=== PATIENT | male | born 1985 | race Caucasian/White ===

== ENCOUNTER 2016-12-05 15:47 | Outpatient (CLI) | payer BC | END 2016-12-05 15:48 | disposition short-term general hospital (02) | LOC: EMS 15:47 | PROVIDERS: ATTEND Surgery | DX: R06.02 Shortness of breath (principal) | CPT/HCPCS: A0425; A0427 ==

== ENCOUNTER 2020-04-29 14:18 | Outpatient (CLI) | payer BC, OTHER ==
[2020-04-29 15:05] VITALS: BP 122/92
--- NOTE | 2020-04-29 15:05 | SLEEP CARE CONSULTATION ---
Information from patient questionnaire entered by Poly Pearl. I have reviewed and concur with the information entered by Poly Pearl. This document represents the service I personally performed and the decisions made by me, Jaycee Santos ARNP. History of Present Illness Service Date and Time: 04/29/2020 1418 Reason for Visit: New patient, -[facility] Chief Complaint: reports: Unrefreshed sleep, Snoring, Excessive daytime sleepiness, Observed pauses in breathing, Fatigue, Frequent awakenings at night Date of Onset: Several years Usual bedtime: 2330 Time it takes to fall asleep: 20 sec Snores at night: Yes (LOUDLY) Observed to quit breathing while asleep: Yes Number of times waking at night: 1 or 2 Reasons for waking at night: reports: Choking, Snoring, Gasping for air, Bathroom Toss, Turn, or Twitch while sleeping: No Recalls having dreams: No (Seldom) Usually gets out of bed at: 0545 to alarm, out of bed about [id number] Feels refreshed in the morning: No Morning headache: Yes (once in a while, not often) Sleepy or fatigued during the day: Yes Ever fallen asleep while driving: No Takes day naps: No Dreams during day naps: No Prior sleep studies: Yes Year and Where: 2014 [facility] Additional HPI information: I had the pleasure of seeing DAILY LILLY today regarding the possibility of him having a sleep disorder. His current complaints are snoring, observed pauses in breathing, unrefreshed sleep and excessive daytime sleepiness. He had a sleep study 5 years ago. He has gained over 45 pounds over the last 3 years. He has a more sedentary job and lost grandparents. He snores really loud. He has stopped breathing. He cannot sleep on back because his tongue falls back and blocks airway. Both his parents have sleep apnea and use CPAP machines. 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 Patient is Single and lives in [place]. Have you smoked in the past 12 months: No Alcohol use: Yes Alcohol amount and frequency: 1 every other month? Seldom Caffeine use: Yes Caffeine amount and frequency: 2 cups/day Family History Family history of sleep disordered breathing: Yes (Mother + Father) Family Hx Sleep Apnea: Mother: Sleep apnea - Treated, Father: Sleep apnea - Treated Allergies and Home Medications Drug allergies reviewed: Yes (Sulfa, penicillin, Septra, DPT) Home medication list reviewed: Yes (Felodipine 5 mg, HCTZ) Review of Systems Weight gain over past 5 years: 45 Weight loss over past 5 years: 23 Cardiovascular: reports: high blood pressure Respiratory: reports: shortness of breath, wheeze Neurological: reports: head trauma (knocked out 2 years ago). denies: headaches Psychiatric: denies: anxiety, depression, mood disorder Ear/Nose/Throat: reports: nasal congestion, wisdom teeth removed. denies: injury to nose, tonsillectomy Endocrine: denies: thyroid disease Immunologic: reports: sneezing (runny nose), itching. denies: allergies to food or environment Physical Exam Blood Pressure: 122/92 Cuff size: long Heart Rate: 79 O2 Saturation: 96 Height: 5 ft 7.5 in Weight: 244 lb Body Mass Index: 37.6 BMI Classification: Obese Neck circumference: 17.25 (inches) Nostrils: patent to airflow Mouth and throat: narrow oropharynx Uvula visualization: 50% Mallampati Class II Tongue: normal in size Tonsils: 2+ Chin and jaw: normal size and position Neck: normal w/o lymphadenopathy or thyromegaly Heart: regular rate and rhythm Lungs: clear bilaterally Impression and Plan 1. Suspected Obstructive Sleep Apnea-Hypopnea Syndrome, as suggested by a history of loud and irregular snoring, observed cessation of breath while asleep, gasping or choking in sleep, frequent awakening during the night, unrefreshed sleep, cognitive impairment, and excessive daytime sleepiness. Narrow oropharynx and obesity are common predisposing factors for obstructive sleep apnea-hypopnea syndrome. I recommend proceeding to polysomnography to confirm the diagnosis and to assess severity. If the patient has significant sleep disordered breathing, a manual CPAP titration study will also be performed to find the optimal treatment pressure. I informed the patient of what the sleep studies involve and after some discussion, obtained agreement to proceed. The pathophysiology of obstructive sleep apnea-hypopnea syndrome was discussed with the patient and health risks of cardiovascular and cerebrovascular disease if not treated. [facility] brochure for obstructive sleep apnea-hypopnea syndrome given and reviewed. Risks of drowsy driving discussed in detail and patient advised to avoid long distance driving and to hook puller at the first sign of drowsiness. Patient agreed to plan. * Schedule polysomnography +- manual CPAP titration study and return in 1-2 weeks after the study to discuss result and initiate therapy. * Avoid long distance driving or driving when feeling sleepy. * Avoid alcohol, sedative and muscle relaxant around bedtime. * Attempt to lose weight. * Review instructions provided by trained office staff on how to prepare for the sleep study. * Return for follow-up after sleep study completed. Counseling Topics: Weight loss health impact Visit Type: In Office Time Spent with Patient (minutes): 30 Provider Statement: I spent 100% of the Face to Face Visit with the patient with greater than 50% spent counseling the patient and coordination of care.
== END 2020-04-29 14:19 | disposition home or self-care (01) ==
LOC: SC 14:18
PROVIDERS: ATTEND Nurse Practitioner Family
DX: G47.10 Hypersomnia, unspecified (principal); R41.89 Other symptoms and signs involving cognitive functions and awareness; G47.8 Other sleep disorders; R06.81 Apnea, not elsewhere classified; R06.83 Snoring; E66.9 Obesity, unspecified; Z68.37 Body mass index [BMI] 37.0-37.9, adult
CPT/HCPCS: 99203; 99212

== ENCOUNTER 2020-05-17 14:17 | Outpatient (CLI) | payer OTHER | END 2020-05-17 14:18 | disposition home or self-care (01) | LOC: SC 14:17 | PROVIDERS: ATTEND Nurse Practitioner Family | DX: G47.33 Obstructive sleep apnea (adult) (pediatric) (principal); R09.02 Hypoxemia | CPT/HCPCS: 95806 ==

== ENCOUNTER 2020-06-17 14:10 | Outpatient (CLI) | payer OTHER ==
--- NOTE | 2020-06-17 14:37 | SLEEP CARE CONSULTATION ---
Information from patient questionnaire entered by Poly Pearl. I have reviewed and concur with the information entered by Poly Pearl. This document represents the service I personally performed and the decisions made by me, Jaycee Santos ARNP. History of Present Illness Service Date and Time: 06/17/2020 1410 Initial [place] Sleepiness Scale score: 7 (in 2020 (3 in 2015) Current [place] Sleepiness Scale score: 5 Additional HPI information: DAILY LILLY returns for follow up and results of the recently performed home sleep study. He was found to have moderate obstructive sleep apnea with an carmen oxygen saturation of 78%. I explained the pathophysiology behind obstructive sleep apnea. We then spent quite a bit of time discussing different treatment options. For mild obstructive sleep apnea, surgery and oral appliance are alternatives to nasal CPAP therapy but in moderate or severe cases, nasal CPAP is the most effective and reliable treatment. Because apnea is primarily in supine position, then positional management therapy could be effective. Methods discussed such as positioning with pillows, using a T-shirt with tennis balls in the back, and shown commercial products that have a pillow format on back to prevent supine sleep. I reviewed the impact of weight changes on sleep apnea and strongly recommended losing weight. After some discussion, the patient opted to go with the nasal CPAP therapy. Nasal a utoCPAP set at 4-15 cmH20 will be ordered with rationale explained. A manual titration study will be ordered if unable to find optimal pressure with office adjustments. I explained how CPAP machine works with sample devices Respironics Dreamstation and ResMed [id number] and what to expect when using the machine. Using CPAP every night in order to get used to it was emphasized. Patient advised to put CPAP mask on before getting into bed so as not to fall asleep without CPAP. To assist acclimation to CPAP use, it could also be used for a short time during day while reading or watching TV. The patient was instructed to call the CPAP supplier to discuss any mechanical problem that may occur. If the mask given is uncomfortable or is difficult to keep on through the night even with adjustment, contact the CPAP supplier as many will replace with another mask style if notified before 30 days. If snoring or perceives is not getting enough air or too much air from the machine, notify this office. [facility] patient education PAP tips reviewed and given to patient. Patient counseled not drink alcohol less than 4 hours before bedtime as it can increase snoring and apnea. Patient was cautioned about risks of drowsy driving until sleepiness symptoms resolve. Sleep Study - Results Type of Sleep Study: Home sleep study Prior sleep studies: Yes Year and Where: 2014 [facility] Polysomnography/Home Sleep Study results: Physician Impression: The quality of the study is fair due to partial loss of pulse oximetry signal.. The length of the study is adequate (> 240 minutes). Please also see the tabulated and graphic data. 1. Obstructive Sleep Apnea-Hypopnea (ICD-10 G47.33), moderate, with an AHI of 23.5/hr and carmen SaO2 of 73%. During the study, the patient had 133 apneas (133 obstructive, 0 central, 0 mixed) and 37 hypopneas. The longest episode lasted 73.5 seconds. The respiratory events occurred more frequently during supine sleep (supine AHI was 32.0 and non-supine, 12.02). 2. Hypoxemia (ICD-10 R09.02), moderate, with the lowest oxygen saturation of 73 % and 31.0 minutes with SaO2 under 90%. Baseline oxygen saturation was normal (Average oxygen saturation was 93%). 3. Tachycardia, with maximum recorded heart rate of 224 beats per minute. This appears to be an artifact. Allergies and Home Medications Home medication list reviewed: Yes (no new meds) Review of Systems Review of systems same as previous: Yes (no changes) Physical Exam Heart Rate: 79 O2 Saturation: 98 Height: 5 ft 7.5 in Weight: 242 lb Body Mass Index: 37.3 BMI Classification: Obese Impression and Plan 1. Obstructive Sleep Apnea-Hypopnea Syndrome, moderate, with lowest oxygen saturation of 78%. Obviously this is the cause of the patients symptoms of unrefreshed sleep, and excessive daytime sleepiness. Positive pressure therapy could benefit hypertension and attention deficit. As mentioned above, the patient will be started on nasal autoCPAP therapy with pressure set at 4-15 cmH2 O. Compliance guidelines also reviewed. A copy of compliance guidelines will be given for reference at check out. Because the apnea is more severe supine, I instructed to avoid sleeping supine using pillow positioning until able to start CPAP use. 2. Hypoxemia, moderate, with the lowest oxygen saturation of 73 % and 31.0 minutes with SaO2 under 90%. His baseline oxygen saturation was normal with an average oxygen saturation of 93%. * Nasal auto CPAP therapy, pressure at 4-15 cm H2O. * Attempt to lose weight. * Avoid alcohol consumption near bedtime. * Avoid supine sleep until using CPAP. * The patient is again cautioned about driving until sleepiness completely resolves. * Return one month after CPAP obtained. I will assess response to therapy and compliance at that time. Counseling Topics: Weight loss health impact Visit Type: In Office Time Spent with Patient (minutes): 20 Provider Statement: I spent 100% of the Face to Face Visit with the patient with greater than 50% spent counseling the patient and coordination of care.
== END 2020-06-17 14:11 | disposition home or self-care (01) ==
LOC: SC 14:10
PROVIDERS: ATTEND Nurse Practitioner Family
DX: G47.33 Obstructive sleep apnea (adult) (pediatric) (principal); R09.02 Hypoxemia; E66.9 Obesity, unspecified; Z68.37 Body mass index [BMI] 37.0-37.9, adult
CPT/HCPCS: 99212; 99213

== ENCOUNTER 2021-02-28 08:00 | Outpatient (CLI) | payer OTHER | END 2021-02-28 23:59 | LOC: LAB 08:00 | PROVIDERS: ATTEND Family Medicine | DX: U07.1 COVID-19 (principal) ==

== ENCOUNTER 2021-12-09 11:43 | Outpatient (CLI) | payer BC | END 2021-12-09 11:44 | disposition short-term general hospital (02) | LOC: EMS 11:43 | DX: R07.89 Other chest pain (principal); R06.02 Shortness of breath; R11.0 Nausea | CPT/HCPCS: A0425; A0427 ==

== ENCOUNTER 2021-12-18 11:05 | Outpatient (CLI) | payer BC ==
[2021-12-18 13:01] LABS: ALBUMIN 4.4 g/dL (3.2-5.5); ALBUMIN/GLOBULIN RATIO 1.4 (1.0-2.2); BILIRUBIN,TOTAL 0.7 mg/dL (0.2-1.0); CALCIUM 9.8 mg/dL (8.5-10.3); CREATININE 1.1 mg/dL (0.6-1.2); POTASSIUM 4.6 mmol/L (3.5-5.0); TOTAL PROTEIN 7.6 g/dL (6.7-8.2)
== END 2021-12-18 11:06 | disposition home or self-care (01) ==
LOC: LAB.N 11:05
PROVIDERS: ATTEND Physician Assistant
DX: R74.8 Abnormal levels of other serum enzymes (principal)
CPT/HCPCS: 36415; 80053

== ENCOUNTER 2021-12-20 09:47 | Outpatient (CLI) | payer BC ==
[2021-12-20 10:26] VITALS: BP 106/62
--- NOTE | 2021-12-20 10:26 | SLEEP CARE CONSULTATION ---
Information from patient questionnaire entered by Merna Jeffrey. I have reviewed and concur with the information entered by Merna Jeffrey. This document represents the service I personally performed and the decisions made by me, Jaycee Santos ARNP. History of Present Illness Service Date and Time: 12/20/2021 0947 Previous diagnosis: Moderate, Obstructive Sleep Apnea-Hypopnea Syndrome AHI: 23.5 (in 2020) Reason for follow up: annual (last seen 06/17/2020) Equipment type: CPAP Prior sleep studies: Yes Year and Where: 2014 [facility] Type of Sleep Study: Home sleep study HPI additional information: DAILY LILLY was diagnosed to have moderate, AHI 23.5, obstructive sleep apnea- hypopnea syndrome and returned today for CPAP therapy annual. Patient has not been back for follow up and states that the DME ([employer]) asked for his machine back due to non-compliance with using it. He just had a STEMI on December 09 and was told he needed to get back on his CPAP machine. Sleep Study - Results Type of Sleep Study: Home sleep study Prior sleep studies: Yes Year and Where: 2014 [facility] CPAP Compliance Data Compliance data discussion: Patient had a ResMed machine that was returned in August 2021. Subjective Initial [place] Sleepiness Scale score: 7 (in 2020 (3 in 2014) Current [place] Sleepiness Scale score: 9 (12/20/2021) Allergies and Home Medications Drug allergies reviewed: Yes (penicillin, sulfa, TDAP vaccine, codeine) Home medication list reviewed: Yes Allergy and home medication list: New Medications: Aspirin Carvedilol Losartan Nitroglycerin Prasugrel Rosuvastatin Spironolactone Review of Systems Review of systems same as previous: No (STEMI on Dec 09, 2021, stent installed in LED) Physical Exam Vital signs obtained and entered by: MERNA Klein MA Blood Pressure: 106/62 (left arm) Cuff size: regular Heart Rate: 65 O2 Saturation: 98 Height: 5 ft 7.5 in Weight: 252 lb 6.4 oz Body Mass Index: 38.9 BMI Classification: Obese Impression and Plan 1. Obstructive Sleep Apnea-Hypopnea Syndrome, moderate. Patient has not been been very compliant with his CPAP and his DME company have him return it in August. Patient recently had a STEMI with stents placed in December 2021.We will have to requalify him for CPAP treatment to get him reinstated on his sleep apnea therapy. I will order a sleep study and he will follow-up after it is completed. I also reviewed the benefit of consistent device use of CPAP for hypertension and attention deficit. 2. Obesity, unspecified. Currently patients BMI is 38.9. Obesity increases the risk of apnea, CPAP pressure requirements and overall health risks especially cardiovascular and diabetes. Thus patient is advised to lose weight. * Schedule polysomnography * Avoid long distance driving or driving when feeling sleepy. * Avoid alcohol, sedative and muscle relaxant around bedtime. * Attempt to lose weight. * Review instructions provided by trained office staff on how to prepare for the sleep study. * Return for follow-up after sleep study completed. Counseling Topics: Weight loss health impact Visit Type: In Office Time Spent with Patient (minutes): 22 Provider Statement: I spent 100% of the Face to Face Visit with the patient with greater than 50% spent counseling the patient and coordination of care.
== END 2021-12-20 09:48 | disposition home or self-care (01) ==
LOC: SC 09:47
PROVIDERS: ATTEND Nurse Practitioner Family
DX: G47.33 Obstructive sleep apnea (adult) (pediatric) (principal); E66.9 Obesity, unspecified; Z68.38 Body mass index [BMI] 38.0-38.9, adult
CPT/HCPCS: 99212; 99213

== ENCOUNTER 2022-01-09 15:39 | Outpatient (CLI) | payer BC | END 2022-01-09 15:40 | disposition home or self-care (01) | LOC: SC 15:39 | PROVIDERS: ATTEND Nurse Practitioner Family | DX: G47.33 Obstructive sleep apnea (adult) (pediatric) (principal); R09.02 Hypoxemia | CPT/HCPCS: 95806 ==

== ENCOUNTER 2022-01-17 15:50 | Outpatient (CLI) | payer BC ==
--- NOTE | 2022-01-17 16:38 | SLEEP CARE CONSULTATION ---
Information from patient questionnaire entered by Merna Jeffrey. I have reviewed and concur with the information entered by Merna Jeffrey. This document represents the service I personally performed and the decisions made by , Jaycee Santos ARNP. History of Present Illness Service Date and Time: 01/17/2022 1550 Initial [place] Sleepiness Scale score: 7 (in 2020 (3 in 2015) Current [place] Sleepiness Scale score: 4 (01/17/2022) Additional HPI information: DAILY LILLY returns for follow up and results of the recently performed home sleep study. I explained the pathophysiology behind obstructive sleep apnea. We then spent quite a bit of time discussing different treatment options. For mild obstructive sleep apnea, surgery and oral appliance are alternatives to nasal CPAP therapy but in moderate or severe cases, nasal CPAP is the most effective and reliable treatment. Because apnea is primarily in supine position, then positional management therapy could be effective. Methods discussed such as positioning with pillows to prevent supine sleep. I reviewed the impact of weight changes on sleep apnea and strongly recommended losing weight. After some discussion, the patient opted to go with the nasal CPAP therapy. Nasal autoCPAP set at 4-15 cmH20 will be ordered with rationale explained. A manual titration study will be ordered if unable to find optimal pressure with office adjustments. I explained how CPAP machine works and what to expect when using the machine. Using CPAP every night in order to get used to it was emphasized. Patient advised to put CPAP mask on before getting into bed so as not to fall asleep without CPAP. To assist acclimation to CPAP use, it could also be used for a short time during day while reading or watching TV. The patient was instructed to call the CPAP supplier to discuss any mechanical problem that may occur. If the mask given is uncomfortable or is difficult to keep on through the night even with adjustment, contact the CPAP supplier as many will replace with anoth er mask style if notified before 30 days. If snoring or perceives is not getting enough air or too much air from the machine, notify this office. Patient counseled not drink alcohol less than 4 hours before bedtime as it can increase snoring and apnea. Patient was cautioned about risks of drowsy driving until sleepiness symptoms resolve. Patient denies drowsy driving. Sleep Study - Results Type of Sleep Study: Home sleep study (COMPLETED 01/09/2022) Prior sleep studies: Yes Year and Where: 2014 [facility] Polysomnography/Home Sleep Study results: Physician Impression: The quality of the study is good. The length of the study is not optimal (< 240 minutes). Please also see the tabulated and graphic data. 1. Obstructive Sleep Apnea-Hypopnea (ICD-10 G47.33), moderate, with an AHI of 16.1/hr and carmen SaO2 of 84%. During the study, the patient had 23 apneas (23 obstructive, 0 central, 0 mixed) and 31 hypopneas. The longest episode lasted 111.5 seconds. The respiratory events o ccurred more frequently during supine sleep (supine AHI was 46.2 and non-supine, 10.02). 2. Hypoxemia (ICD-10 R09.02), mild, with the lowest oxygen saturation of 84 % and 37.8 minutes with SaO2 under 90%. Baseline oxygen saturation was normal (Average oxygen saturation was 92%). Allergies and Home Medications Drug allergies reviewed: Yes (as listed in EMR) Home medication list reviewed: Yes (no changes) Allergy and home medication list: Allergies codeine Allergy (Verified 12/20/21 10:14) Itching Penicillins Allergy (Verified 12/20/21 10:14) Unknown Sulfa (Sulfonamide Antibiotics) Allergy (Verified 12/20/21 10:14) Unknown tetanus and diphtheria toxoids [From TDVAX] Adverse Reaction (Verified 12/20/21 10:14) Unknown Review of Systems Review of systems same as previous: Yes (no changes) Physical Exam Vital signs obtained and entered by: MERNA Klein MA Blood Pressure: 110/64 (LEFT ARM) Cuff size: regular Heart Rate: 74 O2 Saturation: 98 Height: 5 ft 7.5 in Weight: 245 lb 12.8 oz Body Mass Index: 37.9 BMI Classification: Obese Impression and Plan 1. Obstructive Sleep Apnea-Hypopnea Syndrome, moderate, with lowest oxygen saturation of 84%. Obviously this is the cause of the patients symptoms of unrefreshed sleep, and excessive daytime sleepiness. Positive pressure therapy could benefit hypertension and attention deficit. As mentioned above, the patient will be started on nasal autoCPAP therapy with pressure set at 4-15 cmH2 O. Compliance guidelines also reviewed. A copy of compliance guidelines will be given for reference at check out. Because the apnea is more severe supine, I instructed to avoid sleeping supine using pillow positioning until able to start CPAP use. 2. Obesity, unspecified. Currently patients BMI is 37.9. Patient has been getting regular exercise/cardio. Obesity increases the risk of apnea, CPAP pressure requirements and overall health risks especially cardiovascular and diabetes. Thus patient is advised to continue to try to lose weight. * Nasal auto CPAP therapy, pressure at 4-15 cm H2O. * Attempt to lose weight. * Avoid alcohol consumption near bedtime. * Avoid supine sleep until using CPAP. * The patient is again cautioned about driving until sleepiness completely resolves. * Return one month after CPAP obtained. I will assess response to therapy and compliance at that time. Counseling Topics: Weight loss health impact Visit Type: In Office Time Spent with Patient (minutes): 20 Provider Statement: I spent 100% of the Face to Face Visit with the patient with greater than 50% spent counseling the patient and coordination of care.
[2022-01-17 16:39] VITALS: BP 110/64
== END 2022-01-17 15:51 | disposition home or self-care (01) ==
LOC: SC 15:50
PROVIDERS: ATTEND Nurse Practitioner Family
DX: G47.33 Obstructive sleep apnea (adult) (pediatric) (principal); E66.9 Obesity, unspecified; Z68.37 Body mass index [BMI] 37.0-37.9, adult
CPT/HCPCS: 99212; 99213

== ENCOUNTER 2023-08-02 08:00 | Outpatient (CLI) | payer BC | END 2023-08-02 23:59 | disposition home or self-care (01) | LOC: LAB.R 08:00 | PROVIDERS: ATTEND Physician Assistant | DX: R19.7 Diarrhea, unspecified (principal) | CPT/HCPCS: 87045; 87046; 87427; 87493 ==